=== PATIENT | female | born 1990 | race Caucasian/White ===

== ENCOUNTER 2018-10-03 11:09 | Outpatient (CLI) | payer OTHER ==
[2018-10-03 11:23] VITALS: BP 108/71
--- NOTE | 2018-10-03 13:00 | Ultrasound Report ---
ULTRASOUND BIOPHYSICAL PROFILE: History: EFW, PEGGY Technique: Transabdominal ultrasound with Doppler interrogation. 2 - breathing movements 2 - movements 2 - posture and tone 2 - Qualitative amniotic fluid volume 8 - TOTAL SCORE OF POSSIBLE 8 Heart Rate (bpm) 137
--- NOTE | 2018-10-03 13:00 | Ultrasound Report ---
OB ULTRASOUND History EFW, PEGGY. Technique: Transabdominal ultrasound with Doppler interrogation. Gestation: Single Position: Cephalic Amniotic Fluid: Normal PEGGY = 10.7 cm Heart Rate: 140 BPM BPD: 8.2 cm = 33 w 0 d HC: 31.4 cm = 35 w 2 d AC: 28.2 cm = 32 w 2 d FL: 6.8 cm = 35 w 1 d HC/AC Ratio: 1.11 Cephalic Index: 73.6 Estimated Weight: 2202 grams Clinical age = 33 w 0 d EDC: 11/21/18 US Gest. Age = 34 w 0 d EDC: 11/14/18 IMPRESSION: Viable, single intrauterine as described.
== END 2018-10-03 13:01 | disposition home or self-care (01) ==
LOC: TRG 11:09
PROVIDERS: ATTEND Obstetrics & Gynecology
DX: O26.893 Other specified pregnancy related conditions, third trimester (principal); R10.9 Unspecified abdominal pain; Z3A.34 34 weeks gestation of pregnancy; Z88.8 Allergy status to other drugs, medicaments and biological substances
CPT/HCPCS: 76816; 76819

== ENCOUNTER 2018-11-11 12:59 | Outpatient (CLI) | payer OTHER ==
[2018-11-11 13:43] VITALS: BP 109/68
--- NOTE | 2018-11-11 16:02 | Ultrasound Report ---
PROCEDURE: US OB LIMITED TECHNIQUE: Evaluate amniotic fluid HISTORY: PEGGY COMPARISONS: FINDINGS: Single intrauterine gestation currently visualized vertex presentation with a heart rate of 138 bpm. Subjectively the amount of amniotic fluid appears normal. The amniotic fluid index is normal measurin g 14.1 cm. Further evaluation is needed requested nor performed. IMPRESSION: Subjectively and by amniotic fluid index amount of amniotic fluid appears normal. Single living intrauterine gestation visualized currently vertex presentation.. Further evaluation with neither requested nor performed. This document is electronically signed by Pedro Abdalla MD., November 11 2018 03:59:44 PM ET
--- NOTE | 2018-11-12 08:46 | Ultrasound Report ---
BIOPHYSICAL PROFILE: INDICATION: Decreased movement. COMPARISON: None similar. TECHNIQUE: Transabdominal ultrasound with Doppler interrogation. 2 - breathing movements 2 - movements 2 - posture and tone 2 - Qualitative amniotic fluid volume 8 - TOTAL SCORE OF POSSIBLE 8 Heart Rate (bpm) 153 CONCLUSION: Findings, as above.
== END 2018-11-11 15:00 | disposition home or self-care (01) ==
LOC: TRG 12:59
PROVIDERS: ATTEND Obstetrics & Gynecology
DX: O47.1 False labor at or after 37 completed weeks of gestation (principal); O36.8130 Decreased fetal movements, third trimester, not applicable or unspecified; Z3A.39 39 weeks gestation of pregnancy
CPT/HCPCS: 76815; 76819

== ENCOUNTER 2018-11-17 08:18 | Inpatient (IN) | payer OTHER ==
[2018-11-17] MEDS ORDERED: LACTATED RINGERS 2,000 ML ONE (09:11)
[2018-11-17] MEDS ORDERED: REGLAN IV NR (10:30)
[2018-11-17] MEDS ORDERED: BICITRA PO NR (10:30)
[2018-11-17] MEDS ORDERED: PEPCID IV NR (10:30)
[2018-11-17] MEDS ORDERED: ANCEF/STERILE WATER 2 GM/20 ML 2 GM/20 ML SYRINGE IV NR (11:00)
[2018-11-17] MEDS ORDERED: PITOCin/NS 20 UNIT/1000ML DRIP 20 UNITS/1,000 ML BAG IV SCH ×2 (11:00→16:00)
[2018-11-17] MEDS ORDERED: DILAUDID IV PRN (11:03)
[2018-11-17] MEDS ORDERED: NARCAN 0.4 MG/1 ML IV PRN (11:03)
[2018-11-17] MEDS ORDERED: PHENERGAN PO PRN (11:03)
[2018-11-17] MEDS ORDERED: ZOFRAN IV PRN (11:03)
[2018-11-17] MEDS ORDERED: PHENERGAN PR PRN (11:03)
--- NOTE | 2018-11-17 11:07 | Anesthesia Consultation ---
Anesthesia Consult and Med Hx - Airway Anesthetic Teeth Evaluation: Good ROM Head & Neck: Adequate Mental/Hyoid Distance: Adequate Mallampati Class: Class I Intubation Access Assessment: Good - Pulmonary Exam CTA: Yes - Cardiac Exam Cardiac Exam: RRR - Pre-Operative Health Status ASA Pre-Surgery Classification: ASA2 Proposed Anesthetic Plan: Spinal - Pulmonary Hx Smoking: No Hx Asthma: No Hx Respiratory Symptoms: No SOB: No COPD: No Home Oxygen Therapy: No Hx Pneumonia: No Hx Sleep Apnea: No - Cardiovascular System Hx Hypertension: No - Central Nervous System Hx Seizures: No Hx Psychiatric Problems: No - Endocrine Hx Renal Disease: No Hx End Stage Renal Disease: No Hx Hypothyroidism: No Hx Hyperthyroidism: No - Hematic Hx Anemia: No Hx Sickle Cell Disease: No - Other Systems Hx Alcohol Use: No
--- NOTE | 2018-11-17 11:09 | Anesthesia Day of Surgery ---
Anesthesia Day of Surgery - Day of Surgery Patient Examined: Yes Patient H&P Reviewed: Yes Patient is NPO: Yes Beta Blockers: No Cardiac Clearance: No Pulmonary Clearance: No Ang's Test: N/A
[2018-11-17 11:20] LABS: Basophils % (Auto) 0.1 % (0.0-1.8); Eosinophils % (Auto) 0.1 % (0.0-4.3); Hematocrit 39.5 % (30.3-42.9); Hemoglobin 13.5 gm/dl (10.1-14.3); Lymphocytes # (Auto) 1.5 K/mm3 (1.2-5.4); Lymphocytes % (Auto) 17.4 % (13.4-35.0); Mean Corpuscular HGB Conc 34 % (30-34); Mean Corpuscular Volume 94 fl (79-97); Monocytes # (Auto) 0.5 K/mm3 (0.0-0.8); Monocytes % (Auto) 6.4 % (0.0-7.3); Platelet Count 232 K/mm3 (140-440); Red Blood Count 4.19 M/mm3 (3.65-5.03); Red Cell Distribution Width 14.6 % (13.2-15.2)
[2018-11-17] MEDS ORDERED: CLEOCIN 900 MG/50 mL 900 MG/50 ML BAG IV NR (11:50)
[2018-11-17] MEDS: LACTATED RINGERS 1,000 ML IV SCH ×2 (11:52→13:24)
--- NOTE | 2018-11-17 11:55 | History and Physical Report ---
History of Present Illness Date of admission: 11/17/18 08:18 Chief complaint: 27yo 39 3/7 weeks presents for scheduled section. She reports good movement, no loss of fluid and no vaginal bleeding. In triage she was noted to have a temperature of 100.7. She denies any coughing, sore throat, dysuria or abdominal pain. She does recall her mother that she lives with has had a recent URI for two weeks. Blood culture and ulrine cultures were drawn and patient was started on empiric antibiotics. She has received care at [facility] from 12 to 30 weeks then she transferred to [facility]. Her has been complicated by Chlamydia cervicitis with negative test of cure and low lying placenta that has since resolved. She desires permanent sterilization and re-confirmed today. 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: chlamydia (04/2018 with negative test of cure) - Obstetrical History Expected Date of Delivery: 11/21/18 Actual Gestation: 39 Week(s) 3 Day(s) : 2 Hx # Term Pregnancies: 1 Medications and Allergies Allergies Allergy/AdvReac Type Severity Reaction Status Date / Time atropine [From B-Cuca] Allergy Severe Rash Verified 10/03/18 11:26 hyoscyamine [From B-Cuca] Allergy Severe Rash Verified 10/03/18 11:26 phenobarbital [From B-Cuca] Allergy Severe Rash Verified 10/03/18 11:26 scopolamine [From B-Cuca] Allergy Severe Rash Verified 10/03/18 11:26 Active Meds: Active Medications Citric Acid/Sodium Citrate (Bicitra) 30 ml PO ONCE NR Stop: 11/17/18 16:00 Last Admin: 11/17/18 11:46 Dose: 30 ml Documented by: Famotidine (Pepcid) 20 mg IV ONCE NR Stop: 11/17/18 16:00 Last Admin: 11/17/18 11:46 Dose: 20 mg Documented by: Hydromorphone HCl (Dilaudid) 0.5 mg IV Q5M PRN PRN Reason: Breakthrough Pain Cefazolin Sodium (Ancef/Sterile Water 2 Gm/20 Ml) 2 gm in 20 mls @ 80 mls/hr IV PREOP NR; Protocol Stop: 11/17/18 16:00 Lactated Ringer's (Lactated Ringers) 1,000 mls @ 2,250 mls/hr IV PREOP CAMERON Stop: 11/18/18 10:57 Last Admin: 11/17/18 11:52 Dose: 2,250 mls/hr Documented by: Oxytocin/Sodium Chloride (Pitocin/Ns 20 Unit/1000ml Drip) 20 units in 1,000 mls @ 0 mls/hr IV TITR CAMERON Clindamycin HCl (Cleocin 900 Mg/50 Ml) 900 mg in 50 mls @ 100 mls/hr IV PREOP NR; Protocol Metoclopramide HCl (Reglan) 10 mg IV ONCE NR Stop: 11/17/18 16:00 Last Admin: 11/17/18 11:47 Dose: 10 mg Documented by: Naloxone HCl (Narcan 0.4 Mg/1 Ml) 0.2 mg IV Q2MIN PRN PRN Reason: Res Rate </= 8 or 02 SAT < 92% Ondansetron HCl (Zofran) 4 mg IV Q8H PRN PRN Reason: Nausea And Vomiting Promethazine HCl (Phenergan) 25 mg PO Q6H PRN PRN Reason: Nausea And Vomiting Promethazine HCl (Phenergan) 25 mg VT Q6H PRN PRN Reason: Nausea And Vomiting Sodium Chloride (Sodium Chloride Flush Syringe 10 Ml) 10 ml IV PRN NR - Vital Signs Vital signs: Vital Signs Pulse BP 96 H 112/74 11/17/18 08:44 11/17/18 08:44 Temp Pulse Resp BP Pulse Ox 100.1 F H 20 L 20 112/74 11/17/18 10:50 11/17/18 10:50 11/17/18 09:30 11/17/18 08:44 - Physical Exam Abdomen: Positive: normal appearance Results Result Diagrams: 11/17/18 10:23 All other labs normal. Assessment and Plan - Patient Problems (1) Fever of unknown origin Current Visit: Yes Status: Acute Plan to address problem: Draw UA Draw blood cultures x 2 WBC 8 - no leukocytosis Mildly elevated neutrophils, no bandemia Start empiric antibiotics Gentamicin, Clindamycin now and will start Ampicillin post-operatively. If fever persists will get chest x ray post-op. (2) 39 weeks gestation of Current Visit: Yes Status: Acute Plan to address problem: 1. Routine labs 2. IVF 3. Ancef 2g 4. SCDs 5. Risk, benefits, alternatives discussed and Informed consent signed. 6. Proceed to repeat and bilateral tubal ligation. (3) Unwanted fertility Current Visit: Yes Status: Acute Plan to address problem: Risks including but not limited to failure, regret and ectopic have been discussed and informed consent signed. (4) Previous section Current Visit: Yes Status: Acute
[2018-11-17] MEDS ORDERED: SODIUM CHLORIDE FLUSH SYRINGE 10 ML IV NR ×2 (12:00→16:00)
[2018-11-17 12:33] LABS: Bacteria,Urine 1+ /HPF (Negative); Bilirubin,Urine NEG (Negative); Blood,Urine NEG (Negative); Color,Urine Straw (Yellow); Mucus,Urine FEW /HPF; Protein,Urine <15 mg/dL mg/dL (Negative); Urobilinogen,Urine < 2.0 mg/dL (<2.0); WBC,Urine < 1.0 /HPF (0.0-6.0)
[2018-11-17] MEDS: GENTAMICIN/NS 80 MG/100 ML 100 ML IV SCH ×2 (13:25→22:08)
[2018-11-17] MEDS ORDERED: SUBLIMAZE ONE (13:38)
[2018-11-17] MEDS ORDERED: ZOFRAN ONE (13:38)
[2018-11-17] MEDS ORDERED: WATER FOR IRRIG STERILE IR ONE (13:50)
[2018-11-17] MEDS ORDERED: NACL 0.9% IR ONE (13:50)
[2018-11-17] MEDS ORDERED: NEO SYNEPHRINE/NS Syringe(OR USE) IV ONE (14:08)
[2018-11-17] MEDS ORDERED: LACTATED RINGERS 1,000 ML ONE (14:19)
--- NOTE | 2018-11-17 15:14 | Post Anesthesia Evaluation ---
- Post Anesthesia Evaluation Patient Participated: Yes Airway Patent: Yes Stable Respiratory Function: Yes Nausea/Vomiting: No Temp > 96.8F: Yes Pain Manageable: Yes Adequeate Hydration: Yes Anesthesia Complications: No Block Receding Appropriately: Yes Patient on Ventilator: No
[2018-11-17] MEDS ORDERED: AMPICILLIN/NS 2 GM/100 ML 2 GM/100 ML BAG IV ONE ×2 (15:15→19:40)
[2018-11-17] MEDS ORDERED: LANSINOH TP PRN (15:20)
[2018-11-17] MEDS ORDERED: TUCKS PAD TP PRN (15:20)
--- NOTE | 2018-11-17 15:34 | Operative Report ---
Operative Report Operative Report: PREOP Diagnosis 1. 39 4/7 weeks gestation 2. Previous section x 1 3. Fever of unknown origin 4. Undesired fertility Postop Diagnosis 1. 39 4/7 weeks gestation 2. Previous section x 1 3. Fever of unknown origin 4. Undesired fertility Procedure: 1. Repeat low-transverse section 2. Bilateral tubal ligation with Filshie clips Findings 1. Viable female infant in the compound presentation (vertex and right hand), weighing 8lb 2oz, 3695g APGARS 8 at 1 min, 9 at 5 min 2. Normal bilateral ovaries and tubes 3. Right cornual hematometra vs dilated serosal blood vessel 4. Nuchal cord x 1 Surgeon 1. Odette Antunez MD Anesthesia: 1. Spinal I/O: EBL: 700ml IVF 2000ml LR UOP 150ml, clear Specimens removed: 1. Placenta - to pathology for evaluate for chorioamionitis Complications: none Disposition: Patient taken to recovery room in stable condition INDICATIONS: The patient is a 27yo at 39 4/7weeks that presented to Labor and Delivery for schedule repeat section and bilateral tubal ligation. On admission her temperature was noted to be 100.7. A urinalysis and blood cultures were drawn and empiric antibiotic was started, Amp/Gent/Clindamycin. The risks including but not limited to bleeding, infections, injury to surrounding organs, potential injury to mother/infant, failure and risk of ectopic were discussed. All questions were answered and informed consent signed. PROCEDURE: The patient was taken to the OR in stable condition. Adequate anesthesia was achieved with spinal anesthesia. heart tones were confirmed at 148 in the OR. A loya catheter was placed. She wore SCDs for DVT prophylaxis. And received Ancef for infection prophylaxis. The patient was prepped and draped in the usual fashion and an additional time out was done. A Pfannestiel incision was made in the skin and carried down to the fascia. The fascia was incised and the incision extended laterally. The superior and inferior aspect of the rectus muscle was dissected off of the fascia. Entry into the peritoneum was achieved and the incision was extended cranially and caudally. An Spencer retractor was placed abdominally. A low-transverse incision made made in the uterus and extended laterally. membranes were ruptured and noted to be clear. head and right hand were presenting and hand was reduced back into the uterus and head delivered. Nuchal cord x 1 was reduced. Infant was bulb suctioned, cord clamped x2 and handed off to awaiting nursing officer staff. The placenta was delivered intact. 40 units of IV Pitocin was added to LR fluids. The uterus was cleaned of all clots. The hysterotomy was repaired with 0-Vicryl in a running, locked stitch and an imbricating layer of the same suture was used. Right and left tubes were identified to the fimbriated end and ligated using double filshie clips at the isthmus of the tube. The rectus muscle was re-approximated with 3-0Vicryl. Fascia was closed with 0 Vicryl. The Subcutaneous layer reapproximated with 2-0 Vicryl. The skin was then closed with 4-0 Vicryl. The patient tolerated the procedure well. All counts were correct x 3. Urine was noted to be clear at close of case. I was present and scrubbed for the entire procedure. The patient will be continued on antibiotics for 24hrs post- op. The patient was taken to the recovery room in stable condition.
[2018-11-17] MEDS: PERCOCET 5/325 PO PRN (18:11)
[2018-11-17] MEDS: TORADOL IV PRN (20:03)
[2018-11-17] MEDS: CLEOCIN 900 MG/50 mL 900 MG/50 ML BAG IV NR (22:07)
[2018-11-18] MEDS: LACTATED RINGERS 1,000 ML IV SCH (01:00)
[2018-11-18] MEDS: PERCOCET 5/325 PO PRN ×2 (01:02→17:57)
[2018-11-18] MEDS ORDERED: LACTATED RINGERS 1,000 ML IV SCH (02:00)
[2018-11-18] MEDS: TORADOL IV PRN (02:25)
[2018-11-18] MEDS: CLEOCIN 900 MG/50 mL 900 MG/50 ML BAG IV NR ×2 (05:20→14:43)
[2018-11-18 05:26] LABS: Hematocrit 30.9 % (30.3-42.9); Hemoglobin 10.7 gm/dl (10.1-14.3)
[2018-11-18] MEDS: GENTAMICIN/NS 80 MG/100 ML 100 ML IV SCH ×2 (05:56→12:00)
[2018-11-18] MEDS: FEOSOL PO SCH (09:58)
[2018-11-18] MEDS: MORPHINE IV PRN ×2 (10:03→14:50)
--- NOTE | 2018-11-18 10:21 | Progress Note ---
Assessment and Plan A: 27 yo, , POD1 s/p RC/S w/BTL Afebrile Anemia O+ blood type P: Continue routine PP orders Ambulate in room and hallways Increase water intake Anticipate D/C home in 24-48 hrs. Subjective - Subjective Date of service: 11/18/18 Principal diagnosis: Repeat C/S w/BTL Interval history: See Admission H & P; OB vaginal delivery note Patient reports: appetite normal, voiding normally, pain well controlled (with medication), ambulating normally, no flatus, no bowel movement : doing well, other (and ), bottle feeding Objective - Vital Signs Latest vital signs: Vital Signs Temp Pulse Resp BP BP Pulse Ox 11/18/18 10:03 20 11/18/18 07:49 97.9 F 100 H 18 105/69 98 11/18/18 04:20 98.7 F 81 16 96/52 92 11/18/18 02:55 18 11/18/18 02:25 18 11/18/18 02:02 18 11/18/18 01:02 18 11/17/18 23:04 98.5 F 100 H 16 100/63 95 11/17/18 22:46 18 11/17/18 22:16 18 11/17/18 20:33 18 11/17/18 20:03 18 11/17/18 19:47 98.6 F 106 H 16 116/70 97 11/17/18 19:11 18 11/17/18 18:11 20 11/17/18 16:10 90 16 102/72 100 11/17/18 16:05 97.9 F 88 16 109/71 100 11/17/18 15:50 93 H 18 109/69 100 11/17/18 15:35 103 H 16 101/60 100 11/17/18 15:20 91 H 16 101/65 100 11/17/18 15:15 88 18 154/49 100 11/17/18 15:13 97.9 F 98 H 18 149/53 100 11/17/18 10:50 100.1 F H 20 L Intake and Output 11/17/18 11/18/18 11/18/18 23:59 07:59 15:59 Intake Total 150 780 Output Total 800 2100 Balance -650 -1320 Intake: IV 150 CLEOCIN 900 MG/50 mL 900 50 mg In 50 ml @ 100 mls/hr IV Q8HR NR Rx#:[id number] Garamycin/Ns 80 mg/100 ml 100 100 ml @ 200 mls/hr IV Q8H [facility] Rx#:[id number] Oral 480 Intake, Free Water 300 Output: Urine 800 2100 Indwelling Catheter 800 700 Void 1400 Other: Total, Intake Amount 480 Total, Output Amount 800 600 # Voids Void 1 - Exam Breasts: Present: normal Cardiovascular: Present: Regular rate, Normal S1, Normal S2 Lungs: Present: Clear to auscultation, Normal air movement Abdomen: Present: soft, tenderness, normal bowel sounds Uterus: Present: fundal height at umbilicus, fundal height below umbilicus (U-1) Extremities: Present: normal Deep Tendon Reflex Grade: Normal +2 Incision: Present: dressed (with no shadow bleeding/drainage noted) - Labs Labs: Abnormal lab results 11/17/18 Range/Units 10:23 Seg Neutrophils % 76.0 H (40.0-70.0) %
[2018-11-18] MEDS: IBUPROFEN PO PRN (18:01)
[2018-11-18] MEDS: MILK OF MAGNESIA PO PRN (19:48)
[2018-11-18] MEDS ORDERED: MYLICON PO PRN (19:51)
[2018-11-18] MEDS ORDERED: SENOKOT PO SCH (22:00)
[2018-11-18] MEDS: COLACE PO SCH (22:30)
[2018-11-19] MEDS: PERCOCET 5/325 PO PRN (00:05)
[2018-11-19] MEDS: IBUPROFEN PO PRN ×2 (00:08→09:47)
[2018-11-19 08:15] VITALS: BP 98/57
[2018-11-19] MEDS: MILK OF MAGNESIA PO PRN (09:44)
[2018-11-19] MEDS: COLACE PO SCH (09:44)
[2018-11-19] MEDS: FEOSOL PO SCH (09:44)
--- NOTE | 2018-11-19 10:11 | Progress Note ---
Assessment and Plan A: POD #2 Stable P: Follow Routine PostOp Orders D/C home today per patient request RTOin One Week Subjective - Subjective Date of service: 11/19/18 Principal diagnosis: Repeat C/S w/BTL Patient reports: appetite normal, voiding normally, pain well controlled, flatus, ambulating normally [place]: doing well Objective - Vital Signs Latest vital signs: Vital Signs Temp Pulse Resp BP BP Pulse Ox 11/19/18 07:30 98.8 F 92 H 16 98/57 96 11/19/18 01:38 98.4 F 88 18 113/64 97 11/18/18 16:16 97.9 F 104 H 18 117/74 11/18/18 14:50 20 Intake and Output 11/18/18 11/19/18 11/19/18 22:59 06:59 14:59 Intake Total 720 120 360 Output Total 600 Balance 120 120 360 Intake: Oral 720 120 360 Output: Urine 600 Void 600 Other: Total, Intake Amount 240 120 360 Total, Output Amount 600 # Voids Void 1 1 - Exam Breasts: Present: normal Cardiovascular: Present: Regular rate Lungs: Present: Clear to auscultation, Normal air movement Abdomen: Present: normal appearance, soft, normal bowel sounds Uterus: Present: normal, firm, fundal height below umbilicus Extremities: Present: normal Incision: Present: normal, dry, intact
--- NOTE | 2018-11-19 10:20 | Discharge Summary ---
Providers - Providers Date of Admission: 11/17/18 08:18 Date of discharge: 11/19/18 Attending physician: JULIETTE CLARK Primary care physician: COLUMBA MARTELL MD Hospitalization Reason for admission: section Delivery: Procedure: bilateral tubal ligation, repeat low transverse Episiotomy: none Laceration: none Incision: normal, dry, intact complications: none Discharge diagnosis: IUP at term delivered baby: female Condition at discharge: Good Disposition: DC-01 TO HOME OR SELFCARE Plan - Discharge Medications Prescriptions: Ferrous Sulfate [Feosol 325 MG tab] 325 mg PO BID 30 Days #60 tablet Ibuprofen 800 mg PO Q6H PRN 10 Days #30 tablet MDD 3200mg PRN Reason: Pain, Moderate (4-6) oxyCODONE /ACETAMINOPHEN [Percocet 5/325] 1 tab PO Q4HR PRN 14 Days #30 tab PRN Reason: Pain , Severe (7-10) - Provider Discharge Summary Activity: routine, no sex for 6 weeks, no heavy lifting 4 weeks, no strenuous exercise Diet: routine Instructions: routine Additional instructions: [] Smoking cessation referral if applicable(refer to patient education folder for contact #) [] Refer to [facility] Booklet Call your doctor immediately for: * Fever > 100.5 * Heavy vaginal bleeding ( >1 pad per hour) * Severe persistent headache * Shortness of breath * Reddened, hot, painful area to leg or breast * Drainage or odor from incision. * Keep incision clean and dry at all times and follow doctor's instructions regarding bathing/showering - Follow up plan Follow up: COLUMBA MARTELL MD [Primary Care Provider] - 7 Days
== END 2018-11-19 16:20 | disposition home or self-care (01) | DRG 784 ==
LOC: APU 08:18 → OB 16:32
PROVIDERS: ADMIT Obstetrics & Gynecology; ATTEND Obstetrics & Gynecology
PROC: 10D00Z1 Extraction of Products of Conception, Low, Open Approach (ICD-10-PCS; principal; 2018-11-17)
PROC: 0UL70CZ Occlusion of Bilateral Fallopian Tubes with Extraluminal Device, Open Approach (ICD-10-PCS; 2018-11-17)
DX: O34.211 Maternal care for low transverse scar from previous cesarean delivery (principal); O75.2 Pyrexia during labor, not elsewhere classified; Z3A.39 39 weeks gestation of pregnancy; Z37.0 Single live birth; Z90.49 Acquired absence of other specified parts of digestive tract; Z88.8 Allergy status to other drugs, medicaments and biological substances; O69.81X0 Labor and delivery complicated by cord around neck, without compression, not applicable or unspecified; O90.81 Anemia of the puerperium; D64.9 Anemia, unspecified
CPT/HCPCS: 36415; 81001; 85014; 85018; 85025; 86850; 86900; 86901; 87040; 88305; 88307; G0378; A6250; J0290; J0690; J1170; J1580; J1885; J2270; J2370; J2405; J2590; J2765; J3010; J7120